=== PATIENT | male | born 1965 | race Caucasian/White ===

== ENCOUNTER 2022-04-24 12:11 | Emergency (ER) | payer SELFPAY ==
--- NOTE | 2022-04-24 12:51 | ED Back Pain ---
General Chief Complaint: Hip/Pelvic Problems Stated Complaint: BACK PAIN Source of Information: Patient Exam Limitations: Language Barrier (CELIA TITUS) History of Present Illness Date Seen by Provider: Apr 24, 2022 Time Seen by Provider: 12:49 Initial Comments Patient is a 56-year-old male who presents ED with low back pain.'s pain started yesterday evening. He states before the pain started he did lift a heavy chest. But denies immediate pain afterwards. Pain started about 3 hours after. Started again a sharp pain to his left-sided lower back. Pain in the left lower leg and the sole of his foot. Described as [id number]. Denies of any fall. No bowel or urine incontinence or saddle paresthesia. Was seen at the clinic yesterday was given Tylenol without much improvement. Denies history of previous pain in the past. Pain is worse with any type of movement when he stands up or takes a deep breath. Denies any swelling or bruising or fever. No abdominal pain vomiting, diarrhea, chest pain, headache, dizziness. (CELIA TITUS) Allergies and Home Medications Allergies Coded Allergies: No Known Drug Allergies (Unverified , 04/24/22) Patient Home Medication List Home Medication List Reviewed: Yes (CELIA TITUS) Methylprednisolone (Methylprednisolone Dose Pack) 4 Mg Tab.ds.pk, 4 MG PO UD Prescribed by: MANNY ARROYO on 04/24/22 1401 Naproxen (Naproxen) 500 Mg Tablet, 500 MG PO Q12H Prescribed by: MANNY ARROYO on 04/24/22 1401 Review of Systems Constitutional: No chills, No diaphoresis EENTM: No hearing loss, No ear pain, No blurred vision, No double vision Respiratory: No cough, No dyspnea on exertion, No short of breath Cardiovascular: No chest pain, No edema, No syncope Gastrointestinal: No abdominal pain, No diarrhea, No nausea, No vomiting Genitourinary: No decreased output, No discharge Musculoskeletal: back pain; No joint pain, No joint swelling, No muscle pain Skin: No change in color, No change in hair/nails (CELIA TITUS) All Other Systems Reviewed Negative Unless Noted: Yes (CELIA TITUS) Past Efqmvtd-Zdmgsj-Zltihf Hx Patient Social History Tobacco Use?: No Use of E-Cig and/or Vaping dev: No Substance use?: No Alcohol Use?: No Pt feels they are or have been: No (CELIA TITUS) Immunizations Up To Date Influenza Vaccine Up-to-Date: No; Not Current (CELIA TITUS) Past Medical History Surgery/Hospitalization HX: DENIES (CELIA TITUS) Physical Exam Vital Signs Vital Signs - First Documented 04/24/22 12:25 Temp 36.7 Pulse 60 Resp 14 B/P (MAP) 125/74 (91) (NAVEEN AMATO MD) Vital Signs Capillary Refill : (CELIA TITUS) Height, Weight, BMI Height: '" Weight: lbs. oz. kg; BMI Method: General Appearance: No Apparent Distress, WD/WN HEENT: PERRL/EOMI, TMs Normal, Normal ENT Inspection, Pharynx Normal Neck: Full Range of Motion, Normal Inspection, Non Tender, Supple Cardiovascular: Regular Rate, Rhythm, No Edema, No Gallop, No JVD Respiratory: Chest Non Tender, Lungs Clear, Normal Breath Sounds, No Accessory Muscle Use, No Respiratory Distress Gastrointestinal: Normal Bowel Sounds, No Organomegaly, No Pulsatile Mass, Non Tender Back: Vertebral Tenderness (Left lumbar paraspinal muscle tenderness. No lumbar midline tenderness. No right lumbar paraspinal muscle tenderness) Extremity: Other (Normal active range of motion bilateral lower extremity. Negative straight leg raise bilateral. No swelling, erythema or ecchymosis. Neurovascular intact lower extremities) Neurologic/Psychiatric: Alert, Oriented x3, No Motor/Sensory Deficits, Normal Mood/Affect, hands assembler II-XII Norm as Tested Skin: Normal Color, Warm/Dry (CELIA TITUS) Progress/Results/Core Measures Results/Orders Vital Signs/I&O 04/24/22 04/24/22 12:25 14:12 Temp 36.7 36.7 Pulse 60 62 Resp 14 14 B/P (MAP) 125/74 (91) 127/77 (NAVEEN AMATO MD) Departure Communication (PCP) Difficulty obtaining history secondary to language barrier. Used a scoop filler. X-ray with degenerative changes but no acute fracture. He had negative straight leg raise bilateral lower leg. No urinary symptoms, abdominal pain, vomiting, diarrhea. No bowel or urine incontinence or saddle paresthesia. No fever, night sweats or drug use. This appears to be more muscle secondary to the injury that occurred yesterday. He is tender to the lumbar paraspinal muscle. Occurs with any type of movement when he stands or takes a deep breath makes me believe this is more muscle strain. Will discharge with naproxen, Medrol Dosepak. May continue with Tylenol as well. Outpatient follow-up with PCP in 2 to 3 days for reevaluation. Recommend rest for the next week. May consider ice or heat. (CELIA TITUS) Impression Primary Impression: Back pain Disposition: 01 HOME, SELF-CARE Condition: Stable Departure-Patient Inst. Referrals: [facility] (PCP/Family) Primary Care Physician Patient Instructions: Back Muscle Strain Scripts Methylprednisolone (Methylprednisolone Dose Pack) 4 Mg Tab.ds.pk 4 MG PO UD for 6 Days, #21 PKG PER DOSE PACK INSTRUCTIONS Prov: CELIA TITUS 04/24/22 Naproxen (Naproxen) 500 Mg Tablet 500 MG PO Q12H for 10 Days, #20 TAB Prov: CELIA TITUS 04/24/22 PHYSICIAN ATTESTATION NOTE: I was present in the ER while MUSIC ENGRAVER / PA saw the patient, but I was not involved in the care, exam, or management of the patient. (NAVEEN AMATO MD) CELIA TITUS Apr 24, 2022 12:51 NAVEEN AMATO MD Apr 26, 2022 07:49
[2022-04-24] MEDS ORDERED: KETOROLAC 30 MG/ML VIAL IM ONE (13:00)
[2022-04-24] MEDS ORDERED: ORPHENADRINE 60 MG/2 ML (NORFLEX) AMP (ED ONLY) IM ONE (13:00)
--- NOTE | 2022-04-24 13:53 | Diagnostic Imaging Report ---
CLINICAL INDICATION: Patient picked up a suitcase yesterday and the pain began about 3 hours after that. EXAM: X-ray of the lumbar spine, 3 views. COMPARISON: None. FINDINGS: There is no acute lumbar spine fracture or dislocation. There are small spurs involving the lumbar spine. There is mild loss of disk space height at the L5-S1 level. Otherwise, the intervertebral disk heights are maintained. IMPRESSION: 1: There is no acute lumbar spine fracture or dislocation. 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 Dictated by: Dictated on workstation # [id number]
[2022-04-24] MEDS ORDERED: NAPR-915 PO (14:01)
[2022-04-24] MEDS ORDERED: METH4TAB10 PO (14:01)
[2022-04-24 14:12] VITALS: BP 127/77
== END 2022-04-24 14:13 | disposition home or self-care (01) ==
LOC: ER 12:14
DX: M54.50 Low back pain, unspecified (principal); Z28.310 Unvaccinated for COVID-19
CPT/HCPCS: 72100